=== PATIENT | male | born 1995 | race Caucasian/White ===

== ENCOUNTER 2021-01-31 11:12 | Inpatient (IN) | payer MEDICAID, SELFPAY ==
--- NOTE | ~2021-01-31 | CT_ITS ---
EXAMINATION: CT HEAD WITHOUT CONTRAST CLINICAL INFORMATION: Seizure COMPARISON: None TECHNIQUE: Contiguous axial imaging was performed from the skull base to vertex without intravenous administration of contrast. This CT examination was performed using dose optimization techniques as appropriate, variously including the following: *Automated exposure control *Adjustment of mA and/or kV according to patient size (this includes techniques or standardized protocols for targeted exams where dose is matched to indication/reason for exam; i.e. extremities or head) *Use of iterative reconstruction technique DLP: 769 mGy-cm FINDINGS: There is no evidence of acute intracranial hemorrhage or territorial infarction. No abnormal mass effect or midline shift is seen. Johnson to white matter differentiation is well preserved. No extra-axial fluid collections are identified. The ventricles are normal in size. There is no abnormal attenuation within the brain parenchyma. The osseous structures and soft tissues are normal. The mastoid air cells and visualized portions of the paranasal sinuses are well aerated. CT/CT head/brain wo con IMPRESSION: No acute intracranial process seen.
[2021-01-31 12:20] VITALS: BMI 20.4
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
[2021-01-31] MEDS: Nicotine Polacrilex 2 MG GUM 4 MG BUCCAL ×2 (18:54→21:07)
[2021-01-31 19:52] VITALS: BP 108/63; PULSE 111; TEMP 36.6
[2021-01-31] MEDS: hydrOXYzine HCL 25 MG TABLET PO (20:32)
[2021-01-31] MEDS: Divalproex Sodium 500 MG TABLET.DR PO (20:32)
[2021-01-31] MEDS: risperiDONE 1 MG TABLET PO (20:32)
[2021-01-31] MEDS: diphenhydrAMINE HCL 25 MG TABLET 50 MG PO (20:32)
[2021-02-01 05:35] VITALS: BP 107/61; PULSE 91; TEMP 35.9; O2SAT 99
[2021-02-01] MEDS: Nicotine Polacrilex 2 MG GUM 4 MG BUCCAL ×6 (05:59→20:18)
[2021-02-01 07:00] VITALS: BMI 21.1
[2021-02-01] MEDS: Divalproex Sodium 500 MG TABLET.DR PO ×2 (08:51→20:14)
[2021-02-01] MEDS: risperiDONE 1 MG TABLET PO ×2 (08:51→20:15)
--- NOTE | 2021-02-01 09:55 | P.HPPS_ITS ---
HPI Chief Complaint: unspecified schizophernia Sources of Information: patient interviewed and chart reviewed HPI Subjective Notes: Howell Warning and Conditional Voluntary Narrative: Pt is 25 yo male presenting with psychotic disorder. Pt calm, friendly and cooperative. Pt on CV. On admission reported unwanted intrusive delusional thoughts concerned he may be eating children. He denies any AVH. He says that until last week he and his mother were living in [place] where he was court mandated to live in a intermediate and receive antipsychotic treatment, of which he was compliant. He says there he was given meat to eat that tasted weird and triggered thought that perhaps he was eating children; he is not sure if this his mind playing tricks on on him or a real concern and he says he's confused. Pt said prior to living at this intermediate he was eating without problems or concern. Pt says i'm mostly a vegan... but then lists all the types of meat he does eat which is most options available. Pt did not.like living in the intermediate saying that peers were often bullying; due to constant bullying, he had moments of passive SI and was relieved when his mother told him they were returning to the [facility]. He denies current depression, SI/HI or hx of AVH: he denies trauma hx, TBI or hx of manic type symptoms. Pt denies other paranoid thinking. Pt would like his mother involved in treatment. He has a prior history of suicide attempt when he jumped from second floor at his friend's house Medical Evaluation Reviewed: Yes [facility] Family History: Psych hx:He has a prior history of suicide attempt when he jumped from second floor at his friend's house Social History: lives with mother who is supporitve Substance History: denies Trauma History: denies Diagnostics Vital Signs (24Hr): Vital Signs - 24 hr 01/31/21 19:52 02/01/21 05:35 Temperature 97.9 F 96.7 F L Pulse Rate 111 H 91 Blood Pressure 108/63 107/61 Pulse Oximetry 99 Body Mass Index 20.4 Labs Results: 02/01/21 07:57 Meds/Allergies Meds Home Medications Acetaminophen (Acetaminophen 325 Mg Tablet) 650 mg PO Q6H PRN PRN Reason: Headache/Pain Mild Scale (1-3) Al Hydroxide/Mg Hydroxide (Magnesium Hydrox/Alum Hydrox 30 Ml Oral.Susp) 30 ml PO Q6H PRN PRN Reason: Heartburn/Nausea Last Admin: 02/01/21 15:47 Dose: 30 ml Documented by: Clonazepam (Clonazepam 1 Mg Tablet) 1 mg PO BID PRN PRN Reason: Anxiety Diphenhydramine HCl (Diphenhydramine Hcl 25 Mg Tablet) 50 mg PO BEDTIME [facility] Last Admin: 02/03/21 20:57 Dose: 50 mg Documented by: Divalproex Sodium (Divalproex Sodium 500 Mg Tablet.Dr) 500 mg PO BID [facility] Last Admin: 02/04/21 08:26 Dose: 500 mg Documented by: Hydroxyzine HCl (Hydroxyzine Hcl 25 Mg Tablet) 25 mg PO BEDTIME PRN PRN Reason: Anxiety Last Admin: 01/31/21 20:32 Dose: 25 mg Documented by: Magnesium Hydroxide (Milk Of Magnesia 30 Ml Oral.Susp) 30 ml PO DAILY PRN PRN Reason: Constipation Nicotine Polacrilex (Nicotine Polacrilex 2 Mg Gum) 4 mg BUCCAL Q2H PRN PRN Reason: Nicotine Cravings Last Admin: 02/04/21 13:53 Dose: 4 mg Documented by: Risperidone (Risperidone 1 Mg Tablet) 1 mg PO BID [facility] Last Admin: 02/04/21 08:26 Dose: 1 mg Documented by: Trazodone HCl (Trazodone Hcl 50 Mg Tablet) 50 mg PO BEDTIME PRN PRN Reason: Insomnia Allergies Allergies Allergy/AdvReac Type Severity Reaction Status Date / Time shrimp Allergy Unknown Verified 01/31/21 12:36 Mental Status Exam Mental Status Exam Narrative: Narrative: Patient Appearance: Well Grooomed Patient Orientation: Person, Place and Time Level of Consciousness: Awake and Appropriate Patient Behavior: Appropriate Mood Description: Calm Affect Description: Calm Patient Cognition Impaired: No Ability to Follow Directions: good Speech Pattern: Clear Memory Description: Intact Hallucinations: denies Delusions: worried about eating children Thought Content: negative for Suicidal Ideation and negative for Homicidal Ideation Judgement: Fair Assessment & Plan Assessment & Plan (1) Delusional disorder: Status: Acute Code(s): F22 - Delusional disorders Assessment and Plan: IMPRESSION: Pt is 25 yo male presenting with psychotic disorder. Pt calm, friendly and cooperative. On admission pt expressed unwanted intrusive delusional thoughts concerned he may be eating children. He denies any AVH and does not appear to have negative symptoms. He reports being consistent with medications. On admission his risperdal was increased. Pt currently meets criteria for Delusional Disorder; will leave schizoprhenia as a rule as well as OCD. Pt moved here with his mother from [place] where he was being treated for psychotic symptoms and family wanted him to get stabilized and established here so that he does not decompensate further. Pt asks for team to contact his mother to help know when he's ready to return home. PLAN: pt on CV q15 min checks on admission pt was continued on Risperdal but on increased dose of 1mg BID (up from 1mg qhs) on admission Pt was continued on Depakote 500mg BID will get collateral from mother to assess baseline labs for depakote level Patient educated on: diagnosis and medication risk/benefits Informed Consent: understands Reason for continued inpatient stay Substantial Risk for: med/psych decompensation
[2021-02-01 10:10] LABS: Alanine Aminotransferase 15 U/L (0-40); Alkaline Phosphatase 61 U/L (39-117); Anion Gap 12 (12-20); Aspartate Amino Transferase 16 U/L (5-37); Bilirubin Total 0.3 mg/dL (0.0-1.0); Blood Urea Nitrogen 25 mg/dL (9-16); Calcium 9.3 mg/dL (8.4-10.2); Carbon Dioxide 27 mmol/L (22-29); Chloride 107 mmol/L (96-108); Cholesterol 128 mg/dL; Creatinine Clr Calc Pharmacy 135.5; Estimated Glomerular Filt Rate > 60; Glucose Fasting 82 mg/dL (60-99); HDL Cholesterol 39 mg/dL; LDL Cholesterol Calculated 76 mg/dl; Potassium 4.2 mmol/L (3.3-5.1); Sodium 142 mmol/L (135-145); Triglycerides 69 mg/dL
[2021-02-01] MEDS: Magnesium Hydrox/Alum Hydrox 30 ML ORAL.SUSP PO (15:47)
[2021-02-01 17:15] VITALS: BP 126/82; TEMP 36.5
[2021-02-01] MEDS: diphenhydrAMINE HCL 25 MG TABLET 50 MG PO (20:14)
[2021-02-02 06:10] VITALS: BP 103/51; PULSE 71; RESP 16; TEMP 36.4; O2SAT 100
[2021-02-02] MEDS: Nicotine Polacrilex 2 MG GUM 4 MG BUCCAL ×4 (06:50→18:34)
[2021-02-02] MEDS: Divalproex Sodium 500 MG TABLET.DR PO ×2 (08:20→20:02)
[2021-02-02] MEDS: risperiDONE 1 MG TABLET PO ×2 (08:20→20:02)
--- NOTE | 2021-02-02 09:49 | P.PNPSI_ITS ---
Subjective Subjective Date of Service: 02/02/21 Reason For Visit: unspecified schizophernia Interim History: pt reports that he's good. He says he still has the unwanted thoughts about eating children but much less so and he thinks he's better; continues to deny AVH or SI. Pt says he's sleeping well and tolerating increased dose of risperdal. He asks when commercial real estate underwriter thinks he'll be able to go home and asks for commercial real estate underwriter to speak with his mother. Pt and commercial real estate underwriter agree that patient will wayne nue on current regimen and if he continues to feel back to his normal self and wants to go home, team will discuss with his mother. Medication Compliance: Yes Side effects from medications: No Mental Status Exam Mental Status Exam Narrative: Patient Appearance: Well Grooomed Patient Orientation: Person, Place and Time Level of Consciousness: Awake and Appropriate Patient Behavior: Appropriate Mood Description: Calm Affect Description: Calm Patient Cognition Impaired: No Ability to Follow Directions: good Speech Pattern: Clear Memory Description: Intact Hallucinations: denies Delusions: remain but less so Thought Content: negative for Suicidal Ideation and negative for Homicidal Ideation Judgement: Fair Diagnostics Vital Signs (24Hr): Vital Signs - 24 hr 02/01/21 17:15 02/02/21 06:10 Temperature 97.7 F 97.5 F Pulse Rate 71 Respiratory Rate 16 Blood Pressure 126/82 103/51 L Pulse Oximetry 100 Body Mass Index 21.1 Labs Results: 02/01/21 07:57 Labs: Laboratory Results - last 48 hr 02/01/21 07:57 Sodium 142 Potassium 4.2 Chloride 107 Carbon Dioxide 27 Anion Gap 12 BUN 25 H Creatinine 0.77 Estim Creat Clear Calc 135.5 Estimated GFR > 60 Fasting Glucose 82 Calcium 9.3 Total Bilirubin 0.3 AST 16 ALT 15 Alkaline Phosphatase 61 Total Protein 7.0 Albumin 4.0 Triglycerides 69 Cholesterol 128 LDL Cholesterol, Calc 76 HDL Cholesterol 39 Medications Medications Current Medications Generic Name Dose Route Start Last Admin Trade Name Freq PRN Reason Stop Dose Admin Acetaminophen 650 mg 01/31/21 14:41 Acetaminophen 325 Mg Tablet PO Q6H PRN Headache/Pain Mild Scale (1-3) Al Hydroxide/Mg Hydroxide 30 ml 01/31/21 14:41 02/01/21 15:47 Magnesium Hydrox/Alum Hydrox 30 Ml Oral.Susp PO 30 ml Q6H PRN Administration Heartburn/Nausea Clonazepam 1 mg 01/31/21 14:44 Clonazepam 1 Mg Tablet PO BID PRN Anxiety Diphenhydramine HCl 50 mg 01/31/21 21:00 02/01/21 20:14 Diphenhydramine Hcl 25 Mg Tablet PO 50 mg BEDTIME JAKY Administration Divalproex Sodium 500 mg 01/31/21 21:00 02/02/21 08:20 Divalproex Sodium 500 Mg Tablet.Dr PO 500 mg BID JAKY Administration Hydroxyzine HCl 25 mg 01/31/21 14:41 01/31/21 20:32 Hydroxyzine Hcl 25 Mg Tablet PO 25 mg BEDTIME PRN Administration Anxiety Magnesium Hydroxide 30 ml 01/31/21 14:41 Milk Of Magnesia 30 Ml Oral.Susp PO DAILY PRN Constipation Nicotine Polacrilex 4 mg 01/31/21 18:50 02/02/21 06:50 Nicotine Polacrilex 2 Mg Gum BUCCAL 4 mg Q2H PRN Administration Nicotine Cravings Risperidone 1 mg 01/31/21 21:00 02/02/21 08:20 Risperidone 1 Mg Tablet PO 1 mg BID JAKY Administration Trazodone HCl 50 mg 01/31/21 14:41 Trazodone Hcl 50 Mg Tablet PO BEDTIME PRN Insomnia Allergies Allergies Allergy/AdvReac Type Severity Reaction Status Date / Time shrimp Allergy Unknown Verified 01/31/21 12:36 Assessment & Plan Assessment & Plan (1) Delusional disorder: Status: Acute Code(s): F22 - Delusional disorders Pt is 25 yo male presenting with psychotic disorder. Pt calm, friendly and cooperative. On admission pt expressed unwanted intrusive delusional thoughts concerned he may be eating children. He denies any AVH and does not appear to have negative symptoms. He reports being consistent with medications. On admission his risperdal was increased. Pt currently meets criteria for Delusional Disorder; will leave schizoprhenia as a rule as well as OCD. Pt moved here with his mother from [place] where he was being treated for psychotic symptoms and family wanted him to get stabilized and established here so that he does not decompensate further. Pt asks for team to contact his mother to help know when he's ready to return home. PLAN: pt on CV q15 min checks on admission pt was continued on Risperdal but on increased dose of 1mg BID (up from 1mg qhs) on admission Pt was continued on Depakote 500mg BID will get collateral from mother to assess baseline labs for depakote level Greater than 50% of the session was spent on counseling and/or coordination of care Reason for contiued inpatient stay Substantial Risk for: med/psych decompensation
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
[2021-02-02 16:59] VITALS: BP 105/65; PULSE 95; TEMP 36.6
[2021-02-02] MEDS: diphenhydrAMINE HCL 25 MG TABLET 50 MG PO (20:03)
--- NOTE | 2021-02-02 21:32 | PM.IMHP ---
History of Present Illness Date of Service: 02/02/21 Chief Complaint: admission 89 yo with pmhx of schizophrenia currently admitted to [facility] with diagnosis of unspecified schizophrenia. We are asked to see patient for admission H&P patient denies any past medical history, currently denies any symptoms including no chest pain, no shortness of breath, no abdominal pain nausea or vomiting, no urinary symptoms and no lower extremity edema. Denies any headache or change in vision. Vitals at have remained stable Review of Systems Review of Systems: Yes all other systems are reviewed and are negative [facility] Social History Household Members: Family Household Members Other:: MOM, DAD Housing: Apartment Do you presently have visiting nurse or other home services: No Patient Tobacco Use Status: Former Tobacco user Quit Date: 1 YEAR AGO Tobacco use type: Cigarette Years Smoked: 1 YEAR Smoked in Last 30 Days: No e-Cigarette/Vaping Use: Never Used Patient Interested in Nicotine Replacement: Yes Patient Given Instructions on How to Stop Smoking: Yes Date Education Initiated: 01/31/21 Second Hand Smoke Exposure: No Use of substances other than those prescribed or required for medical reasons: No Currently Displaying Signs/Symptoms of Drug Intoxication Withdrawal: No Any prior treatment program specific to substance use: No Have you been hit, kicked, punched, or otherwise hurt by someone within the past year? If so, by whom?: No Do you feel safe in your current relationship?: No Current Relationship Is there a partner from a previous relationship who is making you feel unsafe now?: No Are you made to feel afraid or neglected: No [facility] Practices: TAOIST Advance Directives: No Advance Directives Information Provided: No Advance Directives on File: No Do you have thoughts of harming others: None Do you have a plan to hurt others: No Plan Recently lost weight without trying: No Eating poorly because of decreased appetite: No Nutrition Risks: No Nutritional Risk Poor oral hygiene: No service: No Sexual orientation: Straight/Heterosexual Meds Allergies Allergy/AdvReac Type Severity Reaction Status Date / Time shrimp Allergy Unknown Verified 01/31/21 12:36 Active Medications: Current Medications Generic Name Dose Route Start Last Admin Trade Name Freq PRN Reason Stop Dose Admin Acetaminophen 650 mg 01/31/21 14:41 Acetaminophen 325 Mg Tablet PO Q6H PRN Headache/Pain Mild Scale (1-3) Al Hydroxide/Mg Hydroxide 30 ml 01/31/21 14:41 02/01/21 15:47 Magnesium Hydrox/Alum Hydrox 30 Ml Oral.Susp PO 30 ml Q6H PRN Administration Heartburn/Nausea Clonazepam 1 mg 01/31/21 14:44 Clonazepam 1 Mg Tablet PO BID PRN Anxiety Diphenhydramine HCl 50 mg 01/31/21 21:00 02/02/21 20:03 Diphenhydramine Hcl 25 Mg Tablet PO 50 mg BEDTIME JAKY Administration Divalproex Sodium 500 mg 01/31/21 21:00 02/02/21 20:02 Divalproex Sodium 500 Mg Tablet.Dr PO 500 mg BID JAKY Administration Hydroxyzine HCl 25 mg 01/31/21 14:41 01/31/21 20:32 Hydroxyzine Hcl 25 Mg Tablet PO 25 mg BEDTIME PRN Administration Anxiety Magnesium Hydroxide 30 ml 01/31/21 14:41 Milk Of Magnesia 30 Ml Oral.Susp PO DAILY PRN Constipation Nicotine Polacrilex 4 mg 01/31/21 18:50 02/02/21 18:34 Nicotine Polacrilex 2 Mg Gum BUCCAL 4 mg Q2H PRN Administration Nicotine Cravings Risperidone 1 mg 01/31/21 21:00 02/02/21 20:02 Risperidone 1 Mg Tablet PO 1 mg BID JAKY Administration Trazodone HCl 50 mg 01/31/21 14:41 Trazodone Hcl 50 Mg Tablet PO BEDTIME PRN Insomnia Home Medications Medication Instructions Recorded Confirmed Last Taken Type clonazepam 2 mg PO DAILY 01/31/21 01/31/21 Unknown History diphenhydramine HCl [Benadryl] 50 mg PO BEDTIME 01/31/21 01/31/21 Unknown History divalproex [Depakote] 500 mg PO BID 01/31/21 01/31/21 Unknown History risperidone [Risperdal] 2 mg PO DAILY 01/31/21 01/31/21 Unknown History topiramate [Topamax] 30 PO 01/31/21 Unknown History Physical Exam Vital Signs and Narrative: Vital Signs: Last Vital Signs Temp 98 F 02/02/21 16:59 Pulse 95 02/02/21 16:59 Resp 16 02/02/21 06:10 BP 105/65 02/02/21 16:59 Pulse Ox 100 02/02/21 06:10 Body Mass Index 21.1 Const: General: cooperative and no acute distress Orientation/consciousness: patient oriented x3 Eyes: General: appearance normal, both eyes and all related structures Resp: Effort & Inspection: normal respiratory effort and able to speak in complete sentences Cardio: Rate: regular rate Rhythm: regular rhythm GI: Palpation (GI): Soft to palpation Auscultation: normal bowel sounds Skin: General skin exam: no rashes or lesions noted Neuro: General: patient oriented x3 Cognition (Neuro): normal cognition Extrem: General: Yes normal to inspection and Yes no pedal edema Results Labs CBC and Chem 7: 02/01/21 07:57 Assessment and Plan (1) Schizophrenia: Status: Acute 25 yo M presented to [facility] for schizophrenia. we are consulted for admission H&P. Pt currently asymptomatic with no pmhx. Current acute unspecified schizophrenia management per [facility] At this time , will sign off , please reach out if any further acute medical attention needed
[2021-02-03 06:00] VITALS: BP 121/58; PULSE 71; RESP 16; TEMP 36.8; O2SAT 100
[2021-02-03] MEDS: risperiDONE 1 MG TABLET PO ×2 (08:28→20:57)
[2021-02-03] MEDS: Divalproex Sodium 500 MG TABLET.DR PO ×2 (08:28→20:57)
[2021-02-03] MEDS: Nicotine Polacrilex 2 MG GUM 4 MG BUCCAL ×2 (08:41→19:46)
[2021-02-03 16:49] VITALS: BP 116/60; PULSE 95; RESP 16; TEMP 36.3; O2SAT 98
--- NOTE | 2021-02-03 20:41 | HO.PSYCHPN ---
Subjective Subjective Date of Service: 02/03/21 Reason For Visit: unspecified schizophernia Interim History: Rafa was keeping mostly to himself. He had no immediate concerns and was in behavioral control Medication Compliance: Yes Side effects from medications: No Review of Systems Acute medical concerns: No Medical Review of Systems: unchanged Mental Status Exam Mental Status Exam Patient Appearance: Well Grooomed Patient Orientation: Person, Place and Time Level of Consciousness: Awake and Appropriate Patient Behavior: Appropriate Mood Description: Calm Affect Description: Calm Patient Cognition Impaired: No Ability to Follow Directions: Excellent Speech Pattern: Clear Memory Description: Intact Hallucinations: None Delusions: Not Present Thought Content: negative for Suicidal Ideation and negative for Homicidal Ideation Judgement: Fair Diagnostics Vital Signs (24Hr): Vital Signs - 24 hr 02/03/21 06:00 02/03/21 16:49 Temperature 98.2 F 97.3 F Pulse Rate 71 95 Respiratory Rate 16 16 Blood Pressure 121/58 L 116/60 Pulse Oximetry 100 98 Body Mass Index 21.1 Labs Results: 02/01/21 07:57 Medications Medications Current Medications Generic Name Dose Route Start Last Admin Trade Name Freq PRN Reason Stop Dose Admin Acetaminophen 650 mg 01/31/21 14:41 Acetaminophen 325 Mg Tablet PO Q6H PRN Headache/Pain Mild Scale (1-3) Al Hydroxide/Mg Hydroxide 30 ml 01/31/21 14:41 02/01/21 15:47 Magnesium Hydrox/Alum Hydrox 30 Ml Oral.Susp PO 30 ml Q6H PRN Administration Heartburn/Nausea Clonazepam 1 mg 01/31/21 14:44 Clonazepam 1 Mg Tablet PO BID PRN Anxiety Diphenhydramine HCl 50 mg 01/31/21 21:00 02/02/21 20:03 Diphenhydramine Hcl 25 Mg Tablet PO 50 mg BEDTIME JAKY Administration Divalproex Sodium 500 mg 01/31/21 21:00 02/03/21 08:28 Divalproex Sodium 500 Mg Tablet.Dr PO 500 mg BID JAKY Administration Hydroxyzine HCl 25 mg 01/31/21 14:41 01/31/21 20:32 Hydroxyzine Hcl 25 Mg Tablet PO 25 mg BEDTIME PRN Administration Anxiety Magnesium Hydroxide 30 ml 01/31/21 14:41 Milk Of Magnesia 30 Ml Oral.Susp PO DAILY PRN Constipation Nicotine Polacrilex 4 mg 01/31/21 18:50 02/03/21 19:46 Nicotine Polacrilex 2 Mg Gum BUCCAL 4 mg Q2H PRN Administration Nicotine Cravings Risperidone 1 mg 01/31/21 21:00 02/03/21 08:28 Risperidone 1 Mg Tablet PO 1 mg BID JAKY Administration Trazodone HCl 50 mg 01/31/21 14:41 Trazodone Hcl 50 Mg Tablet PO BEDTIME PRN Insomnia Allergies Allergies Allergy/AdvReac Type Severity Reaction Status Date / Time shrimp Allergy Unknown Verified 01/31/21 12:36 Assessment & Plan Assessment & Plan (1) Schizophrenia: Status: Acute Code(s): F20.9 - Schizophrenia, unspecified Assessment and Plan: 25 yo M [facility]. we are consulted for admission H&P. Pt currently asymptomatic with no pmhx. Current acute unspecified schizophrenia management per [facility] At this time , will sign off , please reach out if any further acute medical attention needed Compliant with treatment No change to plan Greater than 50% of the session was spent on counseling and/or coordination of care Patient educated on: diagnosis and medication risk/benefits Informed Consent: further education needed Reason for contiued inpatient stay Substantial Risk for: inability to function
[2021-02-03] MEDS: diphenhydrAMINE HCL 25 MG TABLET 50 MG PO (20:57)
[2021-02-04 06:00] VITALS: BP 107/58; PULSE 77; RESP 16; TEMP 36.7; O2SAT 97
[2021-02-04] MEDS: risperiDONE 1 MG TABLET PO ×2 (08:26→20:05)
[2021-02-04] MEDS: Divalproex Sodium 500 MG TABLET.DR PO ×2 (08:26→20:05)
[2021-02-04] MEDS: Nicotine Polacrilex 2 MG GUM 4 MG BUCCAL ×4 (08:29→17:10)
[2021-02-04 17:10] VITALS: BP 118/72; PULSE 102; RESP 16; TEMP 35.9; O2SAT 97
--- NOTE | 2021-02-04 18:39 | HO.PSYCHPN ---
Subjective Subjective Date of Service: 02/04/21 Reason For Visit: unspecified schizophernia Interim History: Rafa was pre-occupied with the idea that the world is ending soon. He was however stating that he has felt some improvement. He was in behavioral control. Medication Compliance: Yes Side effects from medications: No Review of Systems Acute medical concerns: No Medical Review of Systems: unchanged Mental Status Exam Mental Status Exam Patient Appearance: Well Grooomed Patient Orientation: Person, Place and Time Level of Consciousness: Awake and Appropriate Patient Behavior: Appropriate Mood Description: Calm Affect Description: Calm Patient Cognition Impaired: No Ability to Follow Directions: Excellent Speech Pattern: Clear Memory Description: Intact Hallucinations: None Delusions: Not Present Thought Content: negative for Suicidal Ideation and negative for Homicidal Ideation Judgement: Fair Diagnostics Vital Signs (24Hr): Vital Signs - 24 hr 02/04/21 06:00 02/04/21 17:10 Temperature 98.1 F 96.7 F L Pulse Rate 77 102 H Respiratory Rate 16 16 Blood Pressure 107/58 L 118/72 Pulse Oximetry 97 97 Body Mass Index 21.1 Labs Results: 02/01/21 07:57 Medications Medications Current Medications Generic Name Dose Route Start Last Admin Trade Name Freq PRN Reason Stop Dose Admin Acetaminophen 650 mg 01/31/21 14:41 Acetaminophen 325 Mg Tablet PO Q6H PRN Headache/Pain Mild Scale (1-3) Al Hydroxide/Mg Hydroxide 30 ml 01/31/21 14:41 02/01/21 15:47 Magnesium Hydrox/Alum Hydrox 30 Ml Oral.Susp PO 30 ml Q6H PRN Administration Heartburn/Nausea Clonazepam 1 mg 01/31/21 14:44 Clonazepam 1 Mg Tablet PO BID PRN Anxiety Diphenhydramine HCl 50 mg 01/31/21 21:00 02/03/21 20:57 Diphenhydramine Hcl 25 Mg Tablet PO 50 mg BEDTIME JAKY Administration Divalproex Sodium 500 mg 01/31/21 21:00 02/04/21 08:26 Divalproex Sodium 500 Mg Tablet.Dr PO 500 mg BID JAKY Administration Hydroxyzine HCl 25 mg 01/31/21 14:41 01/31/21 20:32 Hydroxyzine Hcl 25 Mg Tablet PO 25 mg BEDTIME PRN Administration Anxiety Magnesium Hydroxide 30 ml 01/31/21 14:41 Milk Of Magnesia 30 Ml Oral.Susp PO DAILY PRN Constipation Nicotine Polacrilex 4 mg 01/31/21 18:50 02/04/21 17:10 Nicotine Polacrilex 2 Mg Gum BUCCAL 4 mg Q2H PRN Administration Nicotine Cravings Risperidone 1 mg 01/31/21 21:00 02/04/21 08:26 Risperidone 1 Mg Tablet PO 1 mg BID JAKY Administration Trazodone HCl 50 mg 01/31/21 14:41 Trazodone Hcl 50 Mg Tablet PO BEDTIME PRN Insomnia Allergies Allergies Allergy/AdvReac Type Severity Reaction Status Date / Time shrimp Allergy Unknown Verified 01/31/21 12:36 Assessment & Plan Assessment & Plan (1) Delusional disorder: Status: Acute Code(s): F22 - Delusional disorders Assessment and Plan: IMPRESSION: Pt is 25 yo male presenting with psychotic disorder. Pt calm, friendly and cooperative. On admission pt expressed unwanted intrusive delusional thoughts concerned he may be eating children. He denies any AVH and does not appear to have negative symptoms. He reports being consistent with medications. On admission his risperdal was increased. Pt currently meets criteria for Delusional Disorder; will leave schizoprhenia as a rule as well as OCD. Pt moved here with his mother from [place] where he was being treated for psychotic symptoms and family wanted him to get stabilized and established here so that he does not decompensate further. Pt asks for team to contact his mother to help know when he's ready to return home. PLAN: pt on CV q15 min checks on admission pt was continued on Risperdal but on increased dose of 1mg BID (up from 1mg qhs) on admission Pt was continued on Depakote 500mg BID will get collateral from mother to assess baseline labs for depakote level No change to the above plan Greater than 50% of the session was spent on counseling and/or coordination of care Patient educated on: diagnosis and medication risk/benefits Informed Consent: further education needed Reason for contiued inpatient stay Substantial Risk for: inability to function
[2021-02-04] MEDS: diphenhydrAMINE HCL 25 MG TABLET 50 MG PO (20:05)
[2021-02-05 05:50] VITALS: BP 122/73; PULSE 97; RESP 16; TEMP 36.3; O2SAT 100
[2021-02-05 08:34] LABS: Ammonia 34 umol/L (13-55)
[2021-02-05 08:56] LABS: Valproate 42.1 mcg/mL (50.0-100.0)
[2021-02-05 09:22] LABS: Alanine Aminotransferase 12 U/L (0-40); Albumin Level 4.2 g/dL (3.5-5.0); Alkaline Phosphatase 64 U/L (39-117); Aspartate Amino Transferase 13 U/L (5-37); Bilirubin Direct < 0.2 mg/dL (0.0-0.5); Bilirubin Total 0.5 mg/dL (0.0-1.0); Total Protein 7.2 g/dL (6.5-8.0)
[2021-02-05] MEDS: LORazepam 2 MG/ML VIAL IM (09:30)
[2021-02-05 09:34] LABS: Glucose, Whole Blood 104 mg/dL (60-115)
--- NOTE | 2021-02-05 09:58 | PM.PSYDC ---
DS: Providers Provider Date of Service: 02/05/21 Date of admission: 01/31/21 11:12 Date of discharge: 02/05/21 Primary care physician: Unknown Physician Attending physician on admission: Fabrizio Watson Consults: 02/01/21 16:13 Consult to Hospitalist Routine Consulting Provider: Hospitalist Reason For Exam: medical exam for admission Attending physician on discharge: Fabrizio Watson DS: Diagnosis Discharge Diagnosis (1) Schizoaffective disorder, bipolar type: Status: Acute Problem details: psychotic symptoms outside of depressive and manic episodes DS: Medications Discharge Medications Home Medications: pt had seizure on unit on 02/05/21 and transferred to [facility] for assessment/treatment. All medications stopped on transfer and deferred to new treatment team. Discharge Plan Discharge Patient Disposition: [facility] Discharge Diagnosis: schizoaffective disorder, bipolar type Referrals: Physician,Unknown [Primary Care Provider] - 1 Week Discharge Medications: Discontinued diphenhydramine HCl [Benadryl] 50 mg Capsule 50 mg PO BEDTIME RF: 0 divalproex [Depakote] 500 mg Tablet,Delayed Release (Dr/Ec) 500 mg PO BID RF: 0 risperidone [Risperdal] 2 mg Tablet 2 mg PO DAILY RF: 0 clonazepam 2 mg Tablet 2 mg PO DAILY RF: 0 topiramate [Topamax] 15 mg Capsule, Sprinkle 30 PO RF: 0 Discharge Orders: Discharge Order (Routine); Ordered 02/05/21 Ordered By: Fabrizio Watson Diet: advance to usual diet Activity on Discharge: As tolerated Stand Alone Forms: Patient Portal Discharge page Care Plan Goals: deferred; transferred to medical floor for tx Health Concerns: deferred; transferred to medical floor for tx Plan of Treatment: deferred; transferred to medical floor for tx Assessment: deferred; transferred to medical floor for tx Discharge Date/Time: 02/05/21 09:55 Mental Status Exam Mental Status Exam Narrative: Pt having seizure and unable to access Data Data Completed and Pending Completed studies during hospitalization [Text1]: 02/01/21 02/05/21 02/05/21 07:57 07:52 07:53 Sodium 142 Potassium 4.2 Chloride 107 Carbon Dioxide 27 Anion Gap 12 BUN 25 H Creatinine 0.77 Estim Creat Clear Calc 135.5 Estimated GFR > 60 POC Glucose Fasting Glucose 82 Calcium 9.3 Magnesium Pending Total Bilirubin 0.3 0.5 Direct Bilirubin < 0.2 AST 16 13 ALT 15 12 Alkaline Phosphatase 61 64 Ammonia 34 Total Protein 7.0 7.2 Albumin 4.0 4.2 Triglycerides 69 Cholesterol 128 LDL Cholesterol, Calc 76 HDL Cholesterol 39 Valproic Acid 42.1 L 02/05/21 09:26 Sodium Potassium Chloride Carbon Dioxide Anion Gap BUN Creatinine Estim Creat Clear Calc Estimated GFR POC Glucose 104 Fasting Glucose Calcium Magnesium Total Bilirubin Direct Bilirubin AST ALT Alkaline Phosphatase Ammonia Total Protein Albumin Triglycerides Cholesterol LDL Cholesterol, Calc HDL Cholesterol Valproic Acid DS: Summary Hospital Course Hospital Course: Pt 25 yo male presenting with psychotic disorder. born and partially raised in [place] but has been living in [place] with his mother for some time. [place] returned to [place] about 1 week before admission. Pt on CV; he was calm and cooperative, denied depression or SI or any AVH. He complained of intrusive thoughts that he's been eating children. Pt was continued on Risperdal but at increased dose of 1mg BID (up from 1mg daily); also continued on depakote. Pt reported that thoughts were less intense and that he felt he might be soon ready for discharge. Pt remained stable on unit with appropriate behaviors and interactions with staff and peers. He continued to deny any SI. One friday, however, pt had seizure on unit on 02/05/21. Code called and he was transferred to [facility] for assessment/treatment. All medications stopped on transfer and deferred to new treatment team. Patients mother contacted (pt gave ENZO to talk w/ mother with whom he lives and is supportive). -mom says no hx of seizures -mom says pt not on Topimax (it was listed in hospitalists note) -mom says little to no hx of AH but endorses hx of manic episodes, first about 7 years ago when for 4 days he was w/out sleep, seeing things that were'nt there, with high energy hyperverbal/pressured speech, saying bizarre things, risk behaviors-went to ruff and jumped off..which resulted in admission -numerous inpatient admissions -hx of depressive episodes and several suicide attempts -hx of paranoid delusional thinking outside of manic and depressive episodes. 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
--- NOTE | 2021-02-05 09:59 | P.EN_ITS ---
Event Note Date of Service: 02/05/21 Event Note: pt had witnessed seizure; code called and patient transferred to [facility] Pt's mother called by nursing staff. She reports that patient is not on Topimax (which was not started on Admission)
--- NOTE | 2021-02-05 09:59 | PM.EVENT ---
Event Note Date of Service: 02/05/21 Event Note: pt had witnessed seizure; code called and patient transferred to [facility] Pt's mother called by nursing staff. She reports that patient is not on Topimax (which was not started on Admission)
--- NOTE | 2021-02-05 10:07 | PC.NURSE ---
T/W was notified at 0915 that pt was down the smith having seizure , rapid response had been called and responding staff MD, T[employer] OPERATOR and security present. Pt was laying on his side not responding with rapid eye movement. VSS, POC 104, no tremors in extremities or incontinence noted. EKG showed normal rhythm. present ordered pt to [facility] for further assessment CT scan and xrays. Pt transported to [facility] at approx. 0930
--- NOTE | 2021-02-05 10:15 | PC.NURSE ---
pt give Ativan 2mg im stat to right gluteus, with overide used due to rapid response, pt appeared to be having a seizure.
== END 2021-02-05 09:55 | disposition short-term general hospital (02) | DRG 750 ==
PROVIDERS: Internal Medicine; Admitting Provider Psychiatry & Neurology Psychiatry; Visit Provider Psychiatry & Neurology Psychiatry
DX: F25.0 Schizoaffective disorder, bipolar type (principal); R56.9 Unspecified convulsions; R11.2 Nausea with vomiting, unspecified; Z91.5 Personal history of self-harm; Z87.891 Personal history of nicotine dependence; Z79.899 Other long term (current) drug therapy
CPT/HCPCS: 36415; 70450; 80053; 80061; 80076; 80164; 82140; 82947; 83735; J2060; Q0163

== ENCOUNTER 2021-02-05 10:19 | Observation (INO) | payer MEDICAID, SELFPAY ==
--- NOTE | 2021-02-05 10:23 | PM.IMHP ---
History of Present Illness Date of Service: 02/05/21 <Jessica Wells NP - Last Filed: 02/05/21 16:06> Chief Complaint: Transfer from , possible seizure <Jessica Wells NP - Last Filed: 02/05/21 16:06> 89 year man transferred from this morning response was called. Apparently the patient suddenly became weak and started staring he was lowered to the ground. Patient had remained hemodynamically stable with normal blood pressure, pulse and oxygen saturation. He was staring in to the ER with no purposeful movements or conversation. It was unknown whether patient had a seizure disorder however it. The patient may have had a seizure and was admitted triggered 2 mg of IM lorazepam. Patient was then transferred to a stretcher and brought down for a CT scan. While down getting CT scan patient raised his head and opened his eyes and seemed awake. He remained awake through the CAT scan and then transferred to the intermediate care unit. His labs are all within normal limits, vital signs are stable. He has had no other seizure-like activity although at this time he is expressing suicidal ideation thoughts. <Jessica Wells NP - Last Filed: 02/05/21 16:06> Review of Systems Review of Systems: Yes Unobtainable due to mental status ( unresponsive during seizure activity) and Other <Jessica Wells NP - Last Filed: 02/05/21 16:06> [facility] Medical History: Medical History (Updated 02/05/21 @ 11:10 by Fabrizio Watson) Schizoaffective disorder, bipolar type <Jessica Wells NP - Last Filed: 02/05/21 16:06> Pertinent family history: unknown as patient was unresponsive <Jessica Wells NP - Last Filed: 02/05/21 16:06> Social History: Social History Household Members: Family Household Members Other:: lives with parent Housing: Apartment Do you presently have visiting nurse or other home services: No Patient Tobacco Use Status: Former Tobacco user Quit Date: 01/2020 Tobacco use type: Cigarette Years Smoked: 1 YEAR Smoked in Last 30 Days: No e-Cigarette/Vaping Use: Never Used Patient Interested in Nicotine Replacement: No Patient Given Instructions on How to Stop Smoking: No Second Hand Smoke Exposure: No Use of substances other than those prescribed or required for medical reasons: Yes Substance Use Type: Marijuana Substance Use Frequency: Occasionally Last Used Substance: Unknown Currently Displaying Signs/Symptoms of Drug Intoxication Withdrawal: No Any prior treatment program specific to substance use: No Have you been hit, kicked, punched, or otherwise hurt by someone within the past year? If so, by whom?: No Do you feel safe in your current relationship?: No Current Relationship Is there a partner from a previous relationship who is making you feel unsafe now?: No Are you made to feel afraid or neglected: No Advance Directives: No Advance Directives Information Provided: No Do you have thoughts of harming others: None Do you have a plan to hurt others: No Plan Recently lost weight without trying: No Eating poorly because of decreased appetite: No Nutrition Risks: No Nutritional Risk Poor oral hygiene: No service: No Sexual orientation: Straight/Heterosexual <Jessica Wells NP - Last Filed: 02/05/21 16:06> Meds Allergies/Adverse reactions: Allergies Allergy/AdvReac Type Severity Reaction Status Date / Time shrimp Allergy Unknown Verified 01/31/21 12:36 <Jessica Wells NP - Last Filed: 02/05/21 16:06> Active Medications: Current Medications Generic Name Dose Route Start Last Admin Trade Name Freq PRN Reason Stop Dose Admin Acetaminophen 650 mg 02/05/21 10:20 Acetaminophen 325 Mg Tablet PO Q6H PRN Pain, Mild (Pain Scale 1-3) Ondansetron HCl 4 mg 02/05/21 10:20 Ondansetron Hcl 4 Mg/2 Ml Vial IVPUSH Q8H PRN Nausea and Vomiting Sodium Chloride 3 ml 02/05/21 16:00 0.9 % Sodium Chloride Flush 3 Ml Syringe [facility] <Jessica Wells NP - Last Filed: 02/05/21 16:06> Home medications: Home Medications Medication Instructions Recorded Confirmed Last Taken Type divalproex 500 mg PO BID 02/05/21 02/05/21 Unknown History risperidone 2 mg PO DAILY 02/05/21 02/05/21 Unknown History <Jessica Wells NP - Last Filed: 02/05/21 16:06> Physical Exam Vital Signs and Narrative: Appearing in no acute distress head is normocephalic atraumatic eyes pupils are PERRLA sclera is anicteric mouth throat mucous membranes are intact and moist neck is supple no lymphadenopathy, no JVD noted lung sounds are clear to auscultation heart regular rate rhythm, clear S1, S2 positive bowel sounds, abdomen is soft, nontender neuro patient is alert x3, no focal deficits <Jessica Wells NP - Last Filed: 02/05/21 16:06> Results Labs CBC and Chem 7: : 02/05/21 11:49 02/05/21 11:50 <Jesisca Wells NP - Last Filed: 02/05/21 16:06> Assessment and Plan (1) Schizoaffective disorder, bipolar type: Status: Acute <Jessica Wells NP - Last Filed: 02/05/21 16:06> 25-year-old man transferred down from due to seizure type activity. Apparently patient was has no history of seizure in the past but was on Topamax at home for unknown reason. Seizure versus pseudo-seizure No further activity since arrival to the intermediate care unit -EEG -neuro consultation -seizure precautions next Schizophrenia/depression. Apparently reporting SI -psych consultation for return to the psychiatric unit -patient will need sitter -on Depakote and risperidone DVT prophylaxis with early ambulation Attending: Dr. Shaver Full code <Jessica Wlels NP - Last Filed: 02/05/21 16:06> (2) Delusional disorder: Status: Acute <Jessica Wells NP - Last Filed: 02/05/21 16:06> I saw and examined the patient during rapid response for possible seizure vs Pseudo sieuzre. I discuss finding, plan and mangement with KNOWLEDGE ANALYST and I agree with KNOWLEDGE ANALYST's note above. Likely nonepileptic seizure, EEG, Neuro consult. Benzo PRN, hold anticonvulsants at this time. Head cT reviewed and unremarkable. <Kyle Shaver MD - Last Filed: 02/05/21 19:41>
[2021-02-05 11:00] VITALS: BP 124/73; PULSE 82; RESP 20; TEMP 36.3; O2SAT 100
[2021-02-05 11:15] VITALS: BP 110/57; PULSE 78; RESP 18; TEMP 36.8; O2SAT 100
[2021-02-05 11:37] VITALS: BMI 22.3
[2021-02-05 12:05] LABS: Hematocrit 36.4 % (42-52); Hemoglobin 11.9 g/dl (14.0-18.0); Mean Corpuscular HGB Conc 32.7 g/dl (31.0-36.0); Mean Corpuscular Hemoglobin 30.8 pg (27.0-33.0); Mean Corpuscular Volume 94.3 fL (80-98); Mean Platelet Volume 9.1 fL (9.4-12.4); Platelet Count 170 X10*3/uL (160-400); Red Blood Count 3.86 X10*6/uL (4.60-5.80); Red Cell Distribution Width 13.2 % (11.0-16.0); White Blood Count 7.4 X10*3/uL (4.8-10.8)
[2021-02-05 12:22] LABS: Lactic Acid 1.1 mmol/L (0.5-2.0)
[2021-02-05 13:19] LABS: Anion Gap 10 (12-20); Blood Urea Nitrogen 16 mg/dL (9-16); Calcium 9.3 mg/dL (8.4-10.2); Carbon Dioxide 27 mmol/L (22-29); Chloride 106 mmol/L (96-108); Estimated Glomerular Filt Rate > 60; Glucose Random 91 mg/dL (60-115); Potassium 4.1 mmol/L (3.3-5.1); Sodium 139 mmol/L (135-145)
[2021-02-05 15:17] VITALS: BP 117/64; PULSE 93; TEMP 36.5; O2SAT 99
[2021-02-05] MEDS: 0.9 % Sodium Chloride Flush 3 ML SYRINGE IVFLUSH (15:36)
[2021-02-05] MEDS: Acetaminophen 325 MG TABLET 650 MG PO (15:43)
[2021-02-05 19:46] VITALS: BP 107/74; PULSE 107; RESP 18; TEMP 36.4; O2SAT 96
[2021-02-05] MEDS: ondansetron HCL 4 MG/2 ML VIAL IVPUSH (19:49)
[2021-02-05 23:44] VITALS: BP 104/55; PULSE 98; RESP 14; TEMP 36.3; O2SAT 99
[2021-02-06] MEDS: 0.9 % Sodium Chloride Flush 3 ML SYRINGE IVFLUSH ×2 (00:19→08:26)
[2021-02-06 03:50] VITALS: BP 107/51; PULSE 77; RESP 14; TEMP 36.6; O2SAT 97
[2021-02-06 06:44] LABS: MANUAL DIFF FLAG NO
[2021-02-06 06:49] LABS: Basophils Percent Auto 0.3 % (0-2); Eosinophils Absolute Auto 0.1 X10*3/uL (0.0-0.4); Hematocrit 36.8 % (42-52); Hemoglobin 12.2 g/dl (14.0-18.0); Imm Gran Abs Auto 0.02 X10*3/uL (0.00-0.03); Imm Gran Pct Auto 0.3 % (0.0-0.4); Lymphocytes Absolute Auto 2.2 X10*3/uL (1.2-4.9); Lymphocytes Percent Auto 36.1 % (20-40); Mean Corpuscular HGB Conc 33.2 g/dl (31.0-36.0); Mean Corpuscular Volume 93.6 fL (80-98); Mean Platelet Volume 9.5 fL (9.4-12.4); Monocytes Absolute Auto 0.7 X10*3/uL (0.1-1.2); Monocytes Percent Auto 11.4 % (2-11); Neutrophils Absolute Auto 3.1 X10*3/uL (2.0-8.3); Neutrophils Percent Auto 50.9 % (45-73); Platelet Count 180 X10*3/uL (160-400); Red Blood Count 3.93 X10*6/uL (4.60-5.80); Red Cell Distribution Width 13.2 % (11.0-16.0); White Blood Count 6.1 X10*3/uL (4.8-10.8)
[2021-02-06 07:08] VITALS: BP 124/67; PULSE 87; RESP 17; TEMP 36.6; O2SAT 99
[2021-02-06 07:14] LABS: Anion Gap 10 (12-20); Blood Urea Nitrogen 19 mg/dL (9-16); Calcium 9.4 mg/dL (8.4-10.2); Carbon Dioxide 25 mmol/L (22-29); Chloride 110 mmol/L (96-108); Creatinine Clr Calc Pharmacy 151.8; Estimated Glomerular Filt Rate > 60; Glucose Random 93 mg/dL (60-115); Potassium 4.1 mmol/L (3.3-5.1); Sodium 141 mmol/L (135-145)
--- NOTE | 2021-02-06 08:40 | PHA.MEDREC ---
Pharmacy Consult ? Medication Reconciliation Pharmacy has completed the medication reconciliation.
--- NOTE | 2021-02-06 08:48 | PM.NEUROCN ---
History of Present Illness Data of Consult Service Date: 02/06/21 Primary Care Provider: Unknown Physician 25 years old man who probably suffered from significant psychiatric illness involving significant psychosis was asked to see for possible seizure disorder. Apparently he was noted to be either staring or became lethargic and slumped to the ground but did not fall. He said that he had convulsion and he remember what happened. He denied any previous history of seizure disorder. His psychiatric history was listed in medical records. Review of Systems Review of Systems: Limited because of significant psychiatric disease. Apparently no recent cold or flu-like illness or trauma. [facility] Past Medical History Medical History (Updated 02/06/21 @ 08:52 by Maria Eugenia Smith MD) Schizoaffective disorder, bipolar type Social History Social History Household Members: Family Household Members Other:: lives with parent Housing: Apartment Do you presently have visiting nurse or other home services: No Patient Tobacco Use Status: Former Tobacco user Quit Date: 01/2020 Tobacco use type: Cigarette Years Smoked: 1 YEAR Smoked in Last 30 Days: No e-Cigarette/Vaping Use: Never Used Patient Interested in Nicotine Replacement: No Patient Given Instructions on How to Stop Smoking: No Second Hand Smoke Exposure: No Use of substances other than those prescribed or required for medical reasons: Yes Substance Use Type: Marijuana Substance Use Frequency: Occasionally Last Used Substance: Unknown Currently Displaying Signs/Symptoms of Drug Intoxication Withdrawal: No Any prior treatment program specific to substance use: No Have you been hit, kicked, punched, or otherwise hurt by someone within the past year? If so, by whom?: No Do you feel safe in your current relationship?: No Current Relationship Is there a partner from a previous relationship who is making you feel unsafe now?: No Are you made to feel afraid or neglected: No Advance Directives: No Advance Directives Information Provided: No Do you have thoughts of harming others: None Do you have a plan to hurt others: No Plan Recently lost weight without trying: No Eating poorly because of decreased appetite: No Nutrition Risks: No Nutritional Risk Poor oral hygiene: No service: No Sexual orientation: Straight/Heterosexual Meds Allergies Allergy/AdvReac Type Severity Reaction Status Date / Time shrimp Allergy Unknown Verified 01/31/21 12:36 Active Medications: Current Medications Generic Name Dose Route Start Last Admin Trade Name Lesley PRN Reason Stop Dose Admin Acetaminophen 650 mg 02/05/21 10:20 02/05/21 15:43 Acetaminophen 325 Mg Tablet PO 650 mg Q6H PRN Administration Pain, Mild (Pain Scale 1-3) Ondansetron HCl 4 mg 02/05/21 10:20 02/05/21 19:49 Ondansetron Hcl 4 Mg/2 Ml Vial IVPUSH 4 mg Q8H PRN Administration Nausea and Vomiting Pharmacy Consult 1 each 02/05/21 10:22 Consult Rx Perform Med Rec MISCELLANE ONCE PRN Consult order Sodium Chloride 3 ml 02/05/21 16:00 02/06/21 08:26 0.9 % Sodium Chloride Flush 3 Ml Syringe IVFLUSH 3 ml QSHIFT JAKY Administration Home Medications Medication Instructions Recorded Confirmed Last Taken Type divalproex 500 mg PO BID 02/05/21 02/05/21 Unknown History risperidone 2 mg PO DAILY 02/05/21 02/05/21 Unknown History Physical Exam Vital Signs: Vital Signs: Last Vital Signs Temp 97.9 F 02/06/21 07:08 Pulse 87 02/06/21 07:08 Resp 17 02/06/21 07:08 BP 124/67 02/06/21 07:08 Pulse Ox 99 02/06/21 07:08 Body Mass Index 22.3 Alert and awake looking around made eye contact with quite wake affect. He knew where he was and what year this was and what he had for dinner last night. He was following simple commands. Spontaneity and fluency of speech were normal. Comprehension was normal. Pupils were equal and reactive to light and extraocular muscles were intact. Visual felder are full to threat. Face was symmetrical. There was no obvious focal weakness. Deep tendon reflexes were 1+ with flexor plantars. Results Labs CBC & Chem 7: 02/06/21 06:10 02/06/21 06:10 Labs: Short CBC 02/05/21 02/06/21 Range/Units 11:49 06:10 WBC 7.4 6.1 (4.8-10.8) X10*3/uL Hgb 11.9 L 12.2 L (14.0-18.0) g/dl Hct 36.4 L 36.8 L (42-52) % Plt Count 170 180 (160-400) X10*3/uL BMP 02/05/21 02/06/21 11:50 06:10 Sodium 139 141 Potassium 4.1 4.1 Chloride 106 110 H Carbon Dioxide 27 25 BUN 16 19 H Creatinine 0.78 0.75 Calcium 9.3 9[address] did not reveal any significant abnormality other than dilated cisterna magna. Assessment and Plan (1) Spell of abnormal behavior: Status: Acute 25 years old man who seems to have significant underlying psychiatric disease including psychosis had an episode suggestive of seizure. My index of suspicion for seizure disorder was low. I recommend obtaining a routine EEG and if that is negative to continue with psychiatric care. Procedures Date of Service Date of Service: 02/06/21
--- NOTE | 2021-02-06 08:57 | MHC.CM.PN ---
Met with Patient at bedside with Medical present. Goal for dc is for Patient to return to [facility]. CM has initiated and will follow for dc planning. FANTA addressed with Patient and the original has been given to him and a copy has been placed on the chart. Patient is unsure if he has a PCP and he lives with his Mother. Patient is functionally independent.
[2021-02-06 11:28] VITALS: BP 121/67; PULSE 85; RESP 16; TEMP 36.5; O2SAT 95
--- NOTE | 2021-02-06 13:30 | PM.DS ---
DS: Providers Provider Date of Service: 02/06/21 <Jessica Wells NP - Last Filed: 03/07/21 17:09> Date of admission: 02/05/21 10:19 <Jessica Wells NP - Last Filed: 03/07/21 17:09> Date of discharge: 02/06/21 <Jessica Wells NP - Last Filed: 03/07/21 17:09> Primary care physician: Unknown Physician <Jessica Wells NP - Last Filed: 03/07/21 17:09> Admitting clinician: Jessica Wells <Jessica Wells NP - Last Filed: 03/07/21 17:09> Attending physician on admission: Kyle Shaver <Jessica Wells NP - Last Filed: 03/07/21 17:09> Consults: 02/05/21 10:20 Consult to Neurology Routine Consulting Provider: [facility] Reason for consultation: ? sezizure vs pseudo Has provider been notified: No 02/05/21 11:58 Consult to Hospitalist Routine Consulting Provider: Hospitalist Reason For Exam: medical exam for admission <Jessica Wells NP - Last Filed: 03/07/21 17:09> Attending physician on discharge: Kyle Shaver <Jessica Wells NP - Last Filed: 03/07/21 17:09> Discharging clinician: Jessica Wells <Jessica Wells NP - Last Filed: 03/07/21 17:09> DS: Diagnosis Discharge Diagnosis (1) Spell of abnormal behavior: DS: Medications Discharge Medications Home Medications: Home Medications Medication Instructions Recorded Confirmed divalproex 500 mg PO BID 02/05/21 02/05/21 risperidone 2 mg PO DAILY 02/05/21 02/05/21 <Jessica Wells NP - Last Filed: 03/07/21 17:09> DS: Summary Hospital Course Hospital Course: 25 year old man transferred from this morning response was called. Apparently the patient suddenly became weak and started staring he was lowered to the ground. Patient had remained hemodynamically stable with normal blood pressure, pulse and oxygen saturation. He was staring in to the ER with no purposeful movements or conversation. It was unknown whether patient had a seizure disorder however it. The patient may have had a seizure and was admitted triggered 2 mg of IM lorazepam. Patient was then transferred to a stretcher and brought down for a CT scan. While down getting CT scan patient raised his head and opened his eyes and seemed awake. He remained awake through the CAT scan and then transferred to the intermediate care unit. His labs are all within normal limits, vital signs are stable. He has had no other seizure-like activity although at this time he is expressing suicidal ideation thoughts. Unresponsiveness. Possible seizure. Patient was transferred from after being found unresponsive. He had initially no meaningful communication and he was just staring out. He was not noted to have any episode of loss of bowel or bladder function, foaming at the mouth, tonic-clonic movements. He did have some flickering of his eyelids at 1 point. After being administered 2 mg of IV Ativan and transfer for a CAT scan the patient woke up and knew what his name was, where he was and what had happened. Therefore seems less likely that this was a seizure. May be a pseudo-seizure versus stress from his mental illness. He was seen and evaluated by Neurology and EEG is pending. He is safe for discharge back up to for treatment of his mental illness. Suicide ideation. Had a sitter during hospitalization. Denied any feelings self-harm today. <Jessica Wells NP - Last Filed: 03/07/21 17:09> Time Spent with Patient Time attestation: Total time spent providing and/or coordinating discharge services: <Jessica Wells NP - Last Filed: 03/07/21 17:09> Discharge coordination time: Greater than 30 minutes <Jessica Wells NP - Last Filed: 03/07/21 17:09> Quality: Stroke Does the patient have a stroke diagnosis?: No <Jessica Wells NP - Last Filed: 03/07/21 17:09> Physical Exam Vital Signs: Vital Signs: Last Vital Signs Temp 97.7 F 02/06/21 11:28 Pulse 85 02/06/21 11:28 Resp 16 02/06/21 11:28 BP 121/67 02/06/21 11:28 Pulse Ox 95 02/06/21 11:28 Body Mass Index 22.3 <Jessica Wells NP - Last Filed: 03/07/21 17:09> Appearing in no acute distress head is normocephalic atraumatic eyes pupils are PERRLA sclera is anicteric mouth throat mucous membranes are intact and moist neck is supple no lymphadenopathy, no JVD noted lung sounds are clear to auscultation heart regular rate rhythm, clear S1, S2 positive bowel sounds, abdomen is soft, nontender neuro patient is alert x3, no focal deficits <Jessica Wells NP - Last Filed: 03/07/21 17:09> DS: Data Data Completed and Pending Labs on day of discharge: Laboratory Results - last 24 hr 02/06/21 02/06/21 06:10 06:10 WBC 6.1 RBC 3.93 L Hgb 12.2 L Hct 36.8 L MCV 93.6 MCH 31.0 MCHC 33.2 RDW 13.2 Plt Count 180 MPV 9.5 Immature Gran % (Auto) 0.3 Neut % (Auto) 50.9 Lymph % (Auto) 36.1 [place] % (Auto) 11.4 H Eos % (Auto) 1.0 Baso % (Auto) 0.3 Lymph # (Auto) 2.2 [place] # (Auto) 0.7 Eos # (Auto) 0.1 Baso # (Auto) 0.0 Abs Immat Gran (auto) 0.02 Absolute Neuts (auto) 3.1 Absolute Nucleated RBC 0.000 Nucleated RBC % (auto) 0.0 Sodium 141 Potassium 4.1 Chloride 110 H Carbon Dioxide 25 Anion Gap 10 L BUN 19 H Creatinine 0.75 Estim Creat Clear Calc 151.8 Estimated GFR > 60 Random Glucose 93 Calcium 9.4 <Jessica Wells NP - Last Filed: 03/07/21 17:09> Discharge Plan Discharge Anticipated Discharge Date/Time: 02/06/21 13:20 <Jessica Wells NP - Last Filed: 03/07/21 17:09> Patient Disposition: Xfer Psychiatric Hosp <Jessica Wells NP - Last Filed: 03/07/21 17:09> Referrals: M-5 [Other] - 1 Week Physician,Unknown [Primary Care Provider] - 1 Week <Jessica Wells NP - Last Filed: 03/07/21 17:09> Discharge Medications: No Action trazodone 50 mg Tablet 50 mg PO BEDTIME PRN (Reason: Insomnia) 30 Days Qty: 30 RF: 0 risperidone 2 mg Tablet 2 mg PO BEDTIME 30 Days Qty: 30 RF: 0 risperidone 1 mg Tablet 1 mg PO DAILY 30 Days Qty: 30 RF: 0 divalproex 500 mg Tablet,Delayed Release (Dr/Ec) 500 mg PO BID 30 Days Qty: 60 RF: 0 nicotine (polacrilex) 2 mg Gum 2 mg buccal Q1H PRN (Reason: Nicotine Cravings) 30 Days Qty: 40 RF: 0 <Jessica Wells NP - Last Filed: 03/07/21 17:09> Discharge Orders: Discharge Order (Routine); Ordered 02/05/21 Ordered By: Jessica Wells <Jessica Wells NP - Last Filed: 03/07/21 17:09> Diet: advance to usual diet <Jessica Wells NP - Last Filed: 03/07/21 17:09> advance to usual diet <Kyle Shaver MD - Last Filed: 03/20/21 15:42> Activity on Discharge: As tolerated <Jessica Wells NP - Last Filed: 03/07/21 17:09> As tolerated <Kyle Shaver MD - Last Filed: 03/20/21 15:42> Stand Alone Forms: Patient Portal Discharge page <Jessica Wells NP - Last Filed: 03/07/21 17:09> Care Plan Goals: No further seizure like episodes <Jessica Wells NP - Last Filed: 03/07/21 17:09> Health Concerns: Unresponsiveness <Jessica Wells NP - Last Filed: 03/07/21 17:09> Plan of Treatment: He will be transferred back to for continued behavioral health treatment. When your discharged you can follow-up with your primary care provider for any health concerns. EEG pending <Jessica Wells NP - Last Filed: 03/07/21 17:09> Assessment: I saw and examined patient and discussed finding, assessment, plan and disposition with lamont and harjeet I agree with the above, except if otherwise stated <Jessica Wells NP - Last Filed: 03/07/21 17:09> Discharge Date/Time: 02/06/21 16:50 <Jessica Wells NP - Last Filed: 03/07/21 17:09>
[2021-02-06 15:17] VITALS: BP 108/64; PULSE 84; RESP 20; TEMP 36.6; O2SAT 97
== END 2021-02-06 16:50 ==
PROVIDERS: Admitting Provider Nurse Practitioner Acute Care; Visit Provider Nurse Practitioner Acute Care
DX: F25.0 Schizoaffective disorder, bipolar type (principal); F22 Delusional disorders; R40.4 Transient alteration of awareness; Z87.891 Personal history of nicotine dependence; Z91.013 Allergy to seafood; Z79.899 Other long term (current) drug therapy
CPT/HCPCS: 36415; 80048; 83605; 85025; 85027; 96374; 99219; 99285; J2405

== ENCOUNTER 2021-02-06 17:06 | Inpatient (IN) | payer MEDICAID, SELFPAY ==
[2021-02-06 18:00] VITALS: BP 126/82; PULSE 87; RESP 16; TEMP 36.6
[2021-02-06 20:49] VITALS: BMI 18.9
[2021-02-06] MEDS: risperiDONE 2 MG TABLET PO (20:50)
[2021-02-06] MEDS: Acetaminophen 325 MG TABLET 650 MG PO (20:50)
[2021-02-06] MEDS: Divalproex Sodium 500 MG TABLET.DR PO (20:50)
--- NOTE | 2021-02-06 23:20 | PC.ADMIT ---
Pt is a 25 year old male who was transferred from to [facility] due to possible seizure activity. Pt reports that he has VH where he sees people that look familiar and other people it makes me have nightmares. During the 1:1 assessment he seemed to be preoccupied, staring with a delayed response. Pleasant and cooperative. Hx of Schizophrenia and Bipolar. Placed on 15 minute checks. CV signed. Towards the end of the night pt reported that he has been having trouble sleeping and decreased appetite. I saw a knife on my arm , requested medications to help him sleep. Has not verbalized SI, even though in eval he has been to his providers. Visible on the unit.
[2021-02-06] MEDS: traZODone HCL 50 MG TABLET PO (23:31)
[2021-02-07] MEDS: hydrOXYzine HCL 50 MG TABLET PO (03:55)
[2021-02-07 06:00] VITALS: BP 122/66; PULSE 80; RESP 18; TEMP 36.7; O2SAT 100
[2021-02-07] MEDS: Divalproex Sodium 500 MG TABLET.DR PO ×2 (08:42→21:46)
[2021-02-07] MEDS: risperiDONE 1 MG TABLET PO (09:38)
[2021-02-07] MEDS: LORazepam 1 MG TABLET PO ×2 (09:38→15:29)
--- NOTE | 2021-02-07 10:08 | P.HPPS_ITS ---
HPI Chief Complaint: ?seizure Sources of Information: patient interviewed, chart reviewed and crisis/core team assessment reviewed HPI Subjective Notes: Howell Warning and Conditional Voluntary Narrative: Patient is a 25-year-old male with history of schizoaffective d isorder, bipolar type who presented with psychotic symptoms of delusional thinking that he was accidentally engaged in cannibalism. Patient was taking both Risperdal and Depakote, and Risperdal was increased to good effect. Patient seemed to be stabilizing well and delusional thinking resolved. However on day approaching discharge, patient had a seizure on the unit (at least currently being ruled out a seizure by Neurology who is following) and was admitted to the [facility]. Patient is medically cleared and EEG is pending. While on [facility], hospitalist informed that patient expressed suicidal ideation. He is transferred back to inpatient psychiatric unit for continued stabilization. On approach, patient seemed more confused and said he was feeling ?weird .? He denied any SI and was unclear why keno writer/runner thought he expressed it on medical floor. Patient however continued to say I am feeling very weird ? and while keno writer/runner was talking with him made some jerking motions of his hands. He said t hat he started to hear voices and feels like he is hallucinating; patient said I thought I just saw that person walked by. Patient then said he was confused: He then said he wanted to go home saying that he goes back and forth between feeling normal and feeling confused. Patient was then sitting on a chair in the hallway and screamed out and then broke down and sobs. He was able to calm down and take increased dose of Risperdal to which she had agreed upon earlier during interview. Psychiatric history -mom says little to no hx of AH but endorses hx of manic episodes, first about 7 years ago when for 4 days he was w/out sleep, seeing things that were'nt there, with high energy hyperverbal/pressured speech, saying bizarre things, risk behaviors-went to ruff and jumped off..which resulted in admission -numerous inpatient admissions -hx of depressive episodes and several suicide attempts -hx of paranoid delusional thinking outside of manic and depressive episodes. -mom says no hx of seizures -mom says pt not on Topimax (it was listed in hospitalists note) Past Psychiatric History: -mom says little to no hx of AH but endorses hx of manic episodes, first about 7 years ago when for 4 days he was w/out sleep, seeing things that were'nt there, with high energy hyperverbal/pressured speech, saying bizarre things, risk behaviors-went to roof and jumped off..which resulted in admission -numerous inpatient admissions -hx of depressive episodes and several suicide attempts -hx of paranoid delusional thinking outside of manic and depressive episodes. 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 [employer] Trauma History: denies Diagnostics Vital Signs (24Hr): Vital Signs - 24 hr 02/06/21 18:00 02/07/21 06:00 Temperature 97.9 F 98.1 F Pulse Rate 87 80 Respiratory Rate 16 18 Blood Pressure 126/82 122/66 Pulse Oximetry 100 Body Mass Index 18.9 Meds/Allergies Meds Home Medications Acetaminophen (Acetaminophen 325 Mg Tablet) 650 mg PO Q6H PRN PRN Reason: Pain, Mild (Pain Scale 1-3) Last Admin: 02/06/21 20:50 Dose: 650 mg Documented by: Al Hydroxide/Mg Hydroxide (Magnesium Hydrox/Alum Hydrox 30 Ml Oral.Susp) 30 ml PO Q6H PRN PRN Reason: Heartburn/Nausea Divalproex Sodium (Divalproex Sodium 500 Mg Tablet.) 500 mg PO BID [facility] Last Admin: 02/07/21 08:42 Dose: 500 mg Documented by: Hydroxyzine HCl (Hydroxyzine Hcl 50 Mg Tablet) 50 mg PO Q8H PRN PRN Reason: Anxiety Last Admin: 02/07/21 03:55 Dose: 50 mg Documented by: Magnesium Hydroxide (Milk Of Magnesia 30 Ml Oral.Susp) 30 ml PO DAILY PRN PRN Reason: Constipation Nicotine Polacrilex (Nicotine Polacrilex 2 Mg Lozenge) 2 mg BUCCAL Q1H PRN PRN Reason: withdrawl Risperidone (Risperidone 2 Mg Tablet) 2 mg PO BEDTIME [facility] Last Admin: 02/06/21 20:50 Dose: 2 mg Documented by: Trazodone HCl (Trazodone Hcl 50 Mg Tablet) 50 mg PO BEDTIME PRN PRN Reason: Insomnia Last Admin: 02/06/21 23:31 Dose: 50 mg Documented by: Allergies Allergies Allergy/AdvReac Type Severity Reaction Status Date / Time shrimp Allergy Unknown Verified 01/31/21 12:36 Mental Status Exam Mental Status Exam Narrative: Pt is alert and oriented; behavior disorganized, standing in hallway, staring; patient dressed in hospital gown with adequate hygiene; mood is described as weird and affect congruent; eye contact overly prolonged; Speech is a little slowed, but normal volume; not pressured; some psychomotor agitation as pt jerked his arms; however also some retardation present as patient is walking slow; thought process is disorganized but can be goal directed. Thought content is feeling weird. Some delusional content, paranoid ideations present; denies any SI/HI. Endorses AH and maybe some VH. Patients insight and judgment appear impaired. Assessment & Plan Assessment & Plan (1) Schizoaffective disorder, bipolar type: Status: Acute Code(s): F25.0 - Schizoaffective disorder, bipolar type Assessment and Plan: Impression: Patient is a 25-year-old male with history of schizoaffective disorder, bipolar type who presented with psychotic symptoms of delusional thinking that he was accidentally engaged in cannibalism. Patient was taking both Risperdal and Depakote, and Risperdal was increased to good effect. Patient seemed to be stabilizing well and delusional thinking resolved. However on day approaching discharge, patient had a seizure on the unit (at least currently being ruled out a seizure by Neurology who is following) and was admitted to the [facility]. Patient is medically cleared and EEG is pending. While on [facility], hospitalist informed that patient expressed suicidal ideation. He is transferred back to inpatient psychiatric unit for continued stabilization. On unit patient is more disorganized with more pronounced psychotic symptoms than on previous admission. He has been off Risperdal and Depakote for 1 day. It is unclear what is driving this intensified psychotic presentation. Patient agrees to increased Risperdal dose for now. Will continue to assess PLAN: Patient on CV Will increase Risperdal dose to 1 mg in the morning and 2 mg at bedtime; will titrate slowly since patient has been relatively stable on the less dose in the past Reason for continued inpatient stay Substantial Risk for: harm to self, rapid decompensation and med/psych decompensation
[2021-02-07] MEDS: risperiDONE 0.5 MG TABLET PO (15:29)
[2021-02-07] MEDS: Acetaminophen 325 MG TABLET 650 MG PO (16:50)
[2021-02-07 18:00] VITALS: BP 111/62; PULSE 96; RESP 16; TEMP 36.9; O2SAT 98
[2021-02-07] MEDS: risperiDONE 2 MG TABLET PO (21:46)
[2021-02-08 06:00] VITALS: BP 100/55; PULSE 95; RESP 18; TEMP 36.6; O2SAT 97
[2021-02-08 07:00] VITALS: BMI 20.9
[2021-02-08] MEDS: Divalproex Sodium 500 MG TABLET.DR PO ×2 (08:11→20:04)
[2021-02-08] MEDS: risperiDONE 1 MG TABLET PO (08:12)
[2021-02-08] MEDS: Nicotine Polacrilex 2 MG GUM BUCCAL ×6 (08:57→18:06)
--- NOTE | 2021-02-08 10:00 | HO.PSYCHPN ---
Subjective Subjective Date of Service: 02/08/21 Reason For Visit: ?seizure Interim History: Pt reports that he's feeling better today. Supply Chain Tech discussed patients experience yesterday and he says yay, i was hallucinating...but i'm better now... he's not sure why he had such intense AVH but thinks it was maybe since he went off his medications for a day or so while on medical floor. Pt says it's up to you about when he can go home but says he thinks he's ready. He agrees and wants to have his mother weigh in. Pt denies any delusional thinking and has no thoughts about cannibalism; he denies any AVH and denies any SI or HI. denies any medication side-effect Medication Compliance: Yes Side effects from medications: No Mental Status Exam Mental Status Exam Narrative: Pt is alert and oriented; behavior organized, calm and cooperative; patient dressed in hospital gown and pants with adequate hygiene; mood is described as better and affect congruent and noticeably brighter; eye contact appropriate; Speech is a normal rate, volume and prosody, not pressured; no psychomotor agitation/retardation; thought process is organized, linear and goal directed. Thought content is feeling on feeling better and possible discharge. He denies any delusional thinking and not expressed; denies AVH; Denies SI and HI. Patients insight and judgment appear intact. Diagnostics Vital Signs (24Hr): Vital Signs - 24 hr 02/07/21 18:00 02/08/21 06:00 Temperature 98.4 F 97.9 F Pulse Rate 96 95 Respiratory Rate 16 18 Blood Pressure 111/62 100/55 L Pulse Oximetry 98 97 Body Mass Index 18.9 Medications Medications Current Medications Generic Name Dose Route Start Last Admin Trade Name Freq PRN Reason Stop Dose Admin Acetaminophen 650 mg 02/06/21 17:17 02/07/21 16:50 Acetaminophen 325 Mg Tablet PO 650 mg Q6H PRN Administration Pain, Mild (Pain Scale 1-3) Al Hydroxide/Mg Hydroxide 30 ml 02/06/21 17:18 Magnesium Hydrox/Alum Hydrox 30 Ml Oral.Susp PO Q6H PRN Heartburn/Nausea Divalproex Sodium 500 mg 02/06/21 21:00 02/08/21 08:11 Divalproex Sodium 500 Mg Tablet. PO 500 mg BID JAKY Administration Hydroxyzine HCl 50 mg 02/06/21 21:00 02/07/21 03:55 Hydroxyzine Hcl 50 Mg Tablet PO 50 mg Q8H PRN Administration Anxiety Lorazepam 1 mg 02/07/21 14:16 02/07/21 15:29 Lorazepam 1 Mg Tablet PO 1 mg BID PRN Administration Anxiety Magnesium Hydroxide 30 ml 02/06/21 17:18 Milk Of Magnesia 30 Ml Oral.Susp PO DAILY PRN Constipation Nicotine Polacrilex 2 mg 02/08/21 08:50 02/08/21 08:57 Nicotine Polacrilex 2 Mg Gum BUCCAL 2 mg Q1H PRN Administration Nicotine Cravings Risperidone 2 mg 02/06/21 21:00 02/07/21 21:46 Risperidone 2 Mg Tablet PO 2 mg BEDTIME JAKY Administration Risperidone 1 mg 02/08/21 09:00 02/08/21 08:12 Risperidone 1 Mg Tablet PO 1 mg DAILY JAKY Administration Risperidone 0.5 mg 02/07/21 14:15 02/07/21 15:29 Risperidone 0.5 Mg Tablet PO 0.5 mg BID PRN Administration psychosis/agitation Trazodone HCl 50 mg 02/06/21 21:00 02/06/21 23:31 Trazodone Hcl 50 Mg Tablet PO 50 mg BEDTIME PRN Administration Insomnia Allergies Allergies Allergy/AdvReac Type Severity Reaction Status Date / Time shrimp Allergy Unknown Verified 01/31/21 12:36 Assessment & Plan Assessment & Plan (1) Schizoaffective disorder, bipolar type: Status: Acute Code(s): F25.0 - Schizoaffective disorder, bipolar type Assessment and Plan: Impression: Patient is a 25-year-old male with history of schizoaffective disorder, bipolar type who presented with psychotic symptoms of delusional thinking that he was accidentally engaged in cannibalism. Patient was taking both Risperdal and Depakote, and Risperdal was increased to good effect. Patient seemed to be stabilizing well and delusional thinking resolved. However on day approaching discharge, patient had a seizure on the unit (at least currently being ruled out a seizure by Neurology who is following) and was admitted to the [facility]. Patient is medically cleared and EEG is pending. While on [facility], hospitalist informed that patient expressed suicidal ideation. He is transferred back to inpatient psychiatric unit for continued stabilization. 02/07/21 -On unit patient is more disorganized with more pronounced psychotic symptoms than on previous admission. He has been off Risperdal and Depakote for 1 day. It is unclear what is driving this intensified psychotic presentation. Patient agrees to increased Risperdal dose for now. Will continue to assess 02/08/21 -pt's risperdal was increased to 1mg in AM and 2mg at bedtime and he is much improved, denies AVH, delusions, SI and feels better. -will get pt's mother to weigh in on pt's baseline PLAN: Patient on CV EEG as outpt only rec from neuro. Continue Risperdal 1 mg AM and 2 mg at bedtime; will titrate slowly since patient has been relatively stable on the less dose in the past Greater than 50% of the session was spent on counseling and/or coordination of care Reason for contiued inpatient stay Substantial Risk for: med/psych decompensation
[2021-02-08 16:05] VITALS: BP 127/75; PULSE 92; TEMP 36.4
--- NOTE | 2021-02-08 17:17 | EEG_ITS ---
This is a 16-channel EEG with an EKG lead. The patient is reported awake during the tracing. Background EEG rhythm is at times 10 to 12 hertz, 5 to 50 microvolt posteriorly, lower amplitude fast anteriorly and at times lower amplitude fast with no obvious asymmetry or paroxysmal tendency. Photic stimulation does not produce any significant abnormality. Hyperventilation is not performed. Cardiac lead does not reveal any significant abnormality. No sharp wave spikes or paroxysmal tendency noted. Some lead and muscle artifacts are noted. IMPRESSION: Unremarkable EEG. MD ELZA Jett/RODO / [id number]
[2021-02-08] MEDS: risperiDONE 2 MG TABLET PO (20:04)
[2021-02-09 08:36] LABS: Ammonia 44 umol/L (13-55)
[2021-02-09] MEDS: risperiDONE 1 MG TABLET PO (08:45)
[2021-02-09] MEDS: Divalproex Sodium 500 MG TABLET.DR PO (08:45)
--- NOTE | 2021-02-09 08:46 | PM.PSYDC ---
DS: Providers Provider Date of Service: 02/09/21 Date of admission: 02/06/21 17:06 Date of discharge: 02/09/21 Primary care physician: Unknown Physician Attending physician on admission: Fabrizio Watson Consults: 02/06/21 17:17 Consult to Neurology Routine Consulting Provider: [facility] Reason for consultation: ? sezizure vs pseudo Has provider been notified: No Attending physician on discharge: Fabrizio Watson DS: Diagnosis Discharge Diagnosis (1) Schizoaffective disorder, bipolar type: Status: Chronic Problem details: psychotic symptoms outside of depressive and manic episodes DS: Medications Discharge Medications Home Medications: Previous Rx's Medication Instructions Recorded divalproex 500 mg PO BID 30 Days #60 tab 02/09/21 nicotine (polacrilex) 2 mg BUCCAL Q1H PRN 30 Days #40 ea 02/09/21 risperidone 1 mg PO DAILY 30 Days #30 tab 02/09/21 risperidone 2 mg PO BEDTIME 30 Days #30 tab 02/09/21 trazodone 50 mg PO BEDTIME PRN 30 Days #30 02/09/21 tab Discharge Plan Discharge Patient Disposition: Home, Self-Care Discharge Diagnosis: Schizoaffective disorder, bipolar type Referrals: Therapist: Radha Canchola ([facility]) [Other] - 02/13/21 8:00 am Psych Prescriber: Prachi Yancey ([facility]) [Other] - 03/06/21 11:20 am Psych Prescriber: Prachi Yancey ([facility]) [Other] - 04/03/21 12:10 pm Ziggy Velásquez RN [Other] - 1 Week (Fax- [phone] The [facility] service will be starting on ) Henry Dennis MD [Physician] - 04/12/21 8:50 am Discharge Medications: New trazodone 50 mg Tablet 50 mg PO BEDTIME PRN (Reason: Insomnia) 30 Days Qty: 30 RF: 0 risperidone 2 mg Tablet 2 mg PO BEDTIME 30 Days Qty: 30 RF: 0 risperidone 1 mg Tablet 1 mg PO DAILY 30 Days Qty: 30 RF: 0 nicotine (polacrilex) 2 mg Gum 2 mg buccal Q1H PRN (Reason: Nicotine Cravings) 30 Days Qty: 40 RF: 0 Continued divalproex 500 mg Tablet,Delayed Release (Dr/Ec) 500 mg PO BID 30 Days Qty: 60 RF: 0 Discontinued risperidone 2 mg Tablet 2 mg PO DAILY RF: 0 Discharge Orders: Discharge Order (Routine); Ordered 02/09/21 Ordered By: Fabrizio Watson Diet: regular diet Activity on Discharge: As tolerated Stand Alone Forms: Patient Portal Discharge page, Community Support Care Plan Goals: Maintain mood and safe behaviors Take medications as prescribed Practice coping skills Continue with outpatient providers and reach out to them as needed Health Concerns: Mood instability and behaviors Plan of Treatment: Follow up with your psychiatric provider regarding above concern Take medications as prescribed Assessment: Risk assessment at time of discharge: Patient has been observed closely by nursing and unit staff throughout admission; patient has not engaged in any behaviors that suggest dangerousness to self or others. Patient had moment of psychotic anxiety when he screamed out loud, but otherwise has demonstrated appropriate behaviors and impulse control. Patient was interviewed prior to discharge and found to be fully oriented and without any SI or HI. Patient has insight and demonstrates good judgment in terms of wanting to pursue treatment. Patient is not in imminent risk of harm to self or others and has a safety plan that includes presenting to the closest ER or calling 911 if feeling unsafe. Mental Status Exam Mental Status Exam Narrative: on day of discharge, Pt is alert and oriented; behavior is cooperative, friendly and calm; patient is not in distress; dressed in casual attire with good hygiene; mood is described as good. i feel good and affect congruent; eye contact appropriate; Speech is normal rate, volume and prosody and not pressured; no psychomotor agitation/retardation present; thought process is organized, goal directed and concrete. Thought content is on discharge; but otherwise pertinent to relevant topics and without any delusional content, paranoid ideations or grandiosity; denies any SI/HI. There is no evidence of perceptual disturbance. Patients insight and judgment appear intact. Data Data Completed and Pending Completed studies during hospitalization [Text1]: 02/09/21 02/09/21 07:52 07:52 Sodium Pending Potassium Pending Chloride Pending Carbon Dioxide Pending Anion Gap Pending Total Bilirubin Pending Direct Bilirubin Pending AST Pending ALT Pending Alkaline Phosphatase Pending Ammonia 44 Total Protein Pending Albumin Pending Valproic Acid Pending 02/08/2021 16:09:44 This is a 16-channel EEG with an EKG lead. The patient is reported awake during the tracing. Background EEG rhythm is at times 10 to 12 hertz, 5 to 50 microvolt posteriorly, lower amplitude fast anteriorly and at times lower amplitude fast with no obvious asymmetry or paroxysmal tendency. Photic stimulation does not produce any significant abnormality. Hyperventilation is not performed. Cardiac lead does not reveal any significant abnormality. No sharp wave spikes or paroxysmal tendency noted. Some lead and muscle artifacts are noted. IMPRESSION: Unremarkable EEG. Tracy Smith MD DS: Summary Hospital Course Hospital Course: Patient is a 25-year-old male with history of schizoaffective disorder, bipolar type who presented with psychotic symptoms of delusional thinking that he was accidentally engaged in cannibalism. Patient was taking both Risperdal and Depakote, and Risperdal was increased to good effect. Patient seemed to be stabilizing well and delusional thinking resolved. However on the day approaching discharge, patient had what appeared to be a seizure on the unit (though EEG was unremarkable) and was [place] [facility] [place]. Patient was medically cleared, but while on [facility], hospitalist informed that patient expressed suicidal ideation. He was transferred back to inpatient psychiatric unit for continued stabilization. On day of re-admission, patient was more confused then he'd been and said he was feeling ?weird .? He denied any SI however continued to say I am feeling very weird ? and while casualty underwriter was talking with him made some jerking motions of his hands; he then said he was hearing voices and felt like he is hallucinating. Pt was disorganized, standing in hallway, staring; he screamed out and then broke down and sobs. Patient's Risperdal was increased and he was soon able to relax after taking a p.r.n. By the next day, patient reported that he was feeling back to his normal self, that all AVH and delusional thinking had fully resolved; he continued to deny SI and felt he was probably ready for discharge as long as his mother agreed. Patient remained on unit for another day to demonstrate stability; he continued to remain in good mood with bright affect, without any AVH, paranoid thinking or suicidal ideation. He was looking for to discharge and returning to his mother's house. Patient's mother agreed he was back to his baseline and ready to return home. He was not in imminent risk for harm to self or others and his request for discharge honored. Patient's lab work was within normal limits Hybrid Corn Breeder discussed risks/side effects of both Risperdal and Depakote; patient communicated understanding of benefits, risks and side-effects of medications and wants to continue with regimen. Patient agrees that current doses seem appropriate and denies medication side-effects. Patient agrees to reach out to outpatient provider with any medications concerns. Status at Discharge Overall status at discharge: patient is back to baseline Time Spent with Patient Time attestation: Total time spent providing and/or coordinating discharge services: Time spent: Greater than 30 minutes
[2021-02-09 09:17] LABS: Valproate 48.5 mcg/mL (50.0-100.0)
[2021-02-09 09:18] LABS: Alanine Aminotransferase 10 U/L (0-40); Albumin Level 4.4 g/dL (3.5-5.0); Alkaline Phosphatase 68 U/L (39-117); Anion Gap 12 (12-20); Aspartate Amino Transferase 12 U/L (5-37); Bilirubin Direct 0.3 mg/dL (0.0-0.5); Bilirubin Total 0.8 mg/dL (0.0-1.0); Carbon Dioxide 27 mmol/L (22-29); Chloride 106 mmol/L (96-108); Sodium 141 mmol/L (135-145); Total Protein 7.5 g/dL (6.5-8.0)
== END 2021-02-09 14:23 | disposition home or self-care (01) | DRG 750 ==
PROVIDERS: Admitting Provider Psychiatry & Neurology Psychiatry; Visit Provider Psychiatry & Neurology Psychiatry
DX: F25.0 Schizoaffective disorder, bipolar type (principal); Z79.899 Other long term (current) drug therapy
CPT/HCPCS: 36415; 80051; 80076; 80164; 82140; 95816

== ENCOUNTER 2024-05-17 17:49 | Emergency (ER) | payer OTHER, SELFPAY ==
--- NOTE | ~2024-05-17 | CT_ITS ---
EXAMINATION: CT CHEST, ABDOMEN AND PELVIS withoutCONTRAST CLINICAL INFORMATION: swallowed tooth brush last week COMPARISON: None. TECHNIQUE: Multidetector volumetric CT imaging of the chest, abdomen and pelvis was obtained . Coronal, Sagittal reformatted images preformed at the CT scanner. [This CT examination was performed using dose optimization techniques as appropriate, variously including the following: *Automated exposure control *Adjustment of mA and/or kV according to patient size (this includes techniques or standardized protocols for targeted exams where dose is matched to indication/reason for exam; i.e. extremities or head) *Use of iterative reconstruction technique] DLP: 981 mGy-cm. FINDINGS: No radiopaque foreign body in the chest, abdomen or pelvis. CT CHEST: Lungs: The lungs are clear with no evidence of inflammation or nodules. Mediastinum: The mediastinum is normal. Pleura: There is no pleural effusion. No pleural mass or thickening. Axilla: No lymphadenopathy. CT ABDOMEN AND PELVIS: Liver, Gallbladder and Biliary Tree: The liver is normal in size, shape, and attenuation. No focal hepatic lesion or biliary ductal dilatation is present. The gallbladder is unremarkable with no evidence of radiopaque gallstones, gallbladder wall thickening, or obvious pericholecystic inflammatory changes. Pancreas: No acute change of the pancreas. No mass. No pancreatic duct dilatation. Spleen: Spleen normal in size and contour. No focal lesion. Adrenal Glands: Adrenal glands are normal in size. No focal mass. Kidneys and Ureters: The kidneys are normal in size, shape, and attenuation. No hydronephrosis, hydroureter, or calculi seen. No perinephric stranding. Bladder: Unremarkable. Gastrointestinal Tract: Status post right hemicolectomy. There is no acute abnormality of the bowel. No bowel obstruction. Bowel wall thickening or edema. There are few diverticula sigmoid colon without evidence of diverticulitis. Small volume scattered stool in the colon. Mesentery: No focal inflammation. No free fluid. No free air. Abdominal Wall: No significant hernia is appreciated. Lymph Nodes: Normal. Vascular: Unremarkable. Pelvic Viscera: Unremarkable. Osseous Structures: Chronic compression deformity L1 vertebrae without 80% loss of height of the vertebrae. Kyphosis of the spine at this level. Chronic compression of the superior endplate of L3 with about 50% loss of height of the vertebrae. CT/CT abdomen pelvis wo IV con IMPRESSION: 1. No radiopaque foreign body in the chest, abdomen or pelvis. 2. Status post right hemicolectomy. No acute abnormality of the bowel. 3. Chronic compression deformity L1 and L3 vertebrae. Electronically signed by: Fabian Marcelino MD 05/17/2024 09:22 PM EDT RP
[2024-05-17 18:06] VITALS: BP 110/78; BP 119/79; PULSE 100; PULSE 90; RESP 18; TEMP 36.6; O2SAT 99; BMI 27.7
--- NOTE | 2024-05-17 18:32 | PC.NURSE ---
pt changed over with security. reporting SI. attempt last week 05/10 by swallowing a toothbrush. Reported this to staff today. [facility] staff member at bedside. Reminded to let [facility] staff know if they are leaving the bedside.
--- NOTE | 2024-05-17 18:51 | PC.NURSE ---
belongiings in closet c-3. changed with security
--- NOTE | 2024-05-17 18:58 | ED.GENADULT ---
HPI - General Adult General Chief complaint: General Medical Stated complaint: A&0x4, swallowed a toothbrush, SI Time Seen by Provider: 05/17/24 18:06 Source: patient Mode of arrival: ambulatory Limitations: no limitations History of Present Illness ED Provider: Rudy Barnard HPI narrative: 29 yold male with pmh of presents to the ED for Swallowing a tooth brush. Patient has swallowed tooth brush on May 10 and informed the staff today. Patient states he wanted to kill himself and was upset he did not succeed. Staff member said patient showed him on recording of swallowed the tooth brush. Patient denies vomiting blood, coughing up blood, or blood in stool. Patient denies seeing tooth brush in bowel movement. Aide from [facility] with with the patient's said himself and staff was showed video of patient's swallowing the toothbrush on patient's cell phone. Patient denies any abdominal pain, chest pain, shortness of breath, fever, or chills. Related Data Previous Rx's ?Medication ?Instructions ?Recorded divalproex 500 mg tablet,delayed 500 mg PO BID 30 days #60 tabs 02/09/21 release nicotine (polacrilex) 2 mg gum 2 mg buccal Q1H PRN Nicotine 02/09/21 Cravings 30 days #40 ea risperidone 1 mg tablet 1 mg PO DAILY 30 days #30 tabs 02/09/21 risperidone 2 mg tablet 2 mg PO BEDTIME 30 days #30 tabs 02/09/21 trazodone 50 mg tablet 50 mg PO BEDTIME PRN Insomnia 30 02/09/21 days #30 tabs Allergies Allergy/AdvReac Type Severity Reaction Status Date / Time shrimp Allergy Unknown Verified 05/17/24 18:10 Review of Systems Review of Systems: swallowed tooth luis Yes all other systems are reviewed and are negative PMFSH Past Medical History Medical History Schizoaffective disorder, bipolar type Social History Social History Household Members: Family Household Members Other:: lives with parent Housing: Apartment Do you presently have visiting nurse or other home services: No Unable to assess alcohol history related to: Unable to respond Patient Tobacco Use Status: Former Tobacco user Tobacco use type: Cigarette Years Smoked: 1 YEAR Smoked in Last 30 Days: No e-Cigarette/Vaping Use: Never Used Second Hand Smoke Exposure: No Use of substances other than those prescribed or required for medical reasons: No Substance Use Type: Marijuana Advance Directives: No Advance Directives Information Provided: No service: No Current occupational status: unemployed Sexual orientation: Did not discuss Physical Exam ED Vital Signs: Vital Signs - 24 hr 05/17/24 18:06 05/17/24 23:58 Temperature 97.8 F 98.1 F Pulse Rate 90 89 Respiratory Rate 18 17 Blood Pressure 119/79 121/72 Pulse Oximetry 99 98 Oxygen Delivery Method Room Air Room Air BMI result Body Mass Index 27.7 Const General: cooperative, healthy appearing, comfortable, no acute distress, well developed, alert, awake and Physically active Orientation/consciousness: patient oriented x3 HENMT Head: Yes normal to inspection, Yes No palpable skull fracture present, Yes normocephalic, Yes atraumatic and No abrasion Eyes General: appearance normal, both eyes and all related structures Neck Neck: Yes normal visual inspection, Yes full ROM, Yes no lymphadenopathy, Yes no meningeal signs, Yes trachea midline, Yes supple, No anterior neck swelling and No tender Chest Chest palpation & inspection: normal inspection of the chest and normal palpation of entire chest wall Resp Effort & Inspection: normal respiratory effort and able to speak in complete sentences Auscultation: clear to auscultation bilaterally Cardio Jugular venous distension: no JVD Heart sounds: S1 normal heart sound present and S2 normal heart sound present GI Inspection: Yes normal to inspection Palpation (GI): Soft to palpation, not firm, nontender, no guarding and not rigid General: Yes no CVA tenderness Back/Spine/Pelvis Back: no CVA tenderness and No back tenderness Skin General skin exam: no rashes or lesions noted, elasticity normal and turgor normal Neuro General: patient oriented x3, gait normal, tone normal, moves all extremities, Normal light touch and pain sensation, no meningeal signs, no focal motor deficits, CN's II-XI intact bilaterally and normal sensation to monofilament Extrem General: Yes normal to inspection, Yes full ROM and Yes capillary refill normal Psych Appearance: grossly normal, well kempt and not disheveled Medical Decision Making Medical Decision Making MDM Narrative: 29-year-old male presents to the ED for swallowing a tooth brush as an SI Attempt. Patient denies having any bowel movements that had tooth brush. Patient still believes he has tooth brush inside of him. Abdominal exam is benign. Chest exam is benign. Oral cavity exam is benign. Patient will be sent for dry imaging. 11:31pm: Abdominal CT/Chest CT scan normal and negative for any foreign body or perforation. Patient is comfortable. Patient was asked multiple times during ED visit if he ever had any abdominal pain and patient denies. Patient denies ever having any sore throat. No need for any labs or further imaging. Abdominal exam evaluated and negative for any tenderness. Abdominal exam benign. Called facility [facility] and they are aware of patient's suicide ideation and they are a psych facility and will manage patient and patient will be on one-to-one. Not suspecting myocardial infarction, pericarditis, foreign body impaction, esophageal tear, a colon perforation, foreign body impaction, or any other life threatening etiolgy Differential Diagnosis Differential Diagnoses: The differential diagnosis associated with the presentation includes (Foreign body) Admission/Observation Consideration of admission/observation: Escalation of care including admission/observation considered Independent Interpretation I performed an independent interpretation of an: CT Scan Radiology Impression Discussion of test interpretation with radiology: I have reviewed the radiologist's reading. Independent Historian Clinical information obtained from an independent historian. History obtained from or confirmed by: Other ([facility]) External Record Review External record reviewed: Other Discharge Plan Discharge Clinical Impression: Foreign body (FB) in soft tissue Patient Disposition: Home, Self-Care Instructions: Depression (ED), Foreign Body Ingestion (ED) Additional Instructions: Abdominal CT scan of the chest and abdomen came back negative for any foreign body or signs of perforation. Return to the ED immediately for any abdominal pain, chest pain, shortness of breath, rectal bleeding, vomiting blood, weakness, dizziness, or any other concerning symptoms. Recommend one to one intervention at facility Prescriptions: No Action trazodone 50 mg Tablet 50 mg PO BEDTIME PRN (Reason: Insomnia) 30 Days Qty: 30 0RF risperidone 2 mg Tablet 2 mg PO BEDTIME 30 Days Qty: 30 0RF risperidone 1 mg Tablet 1 mg PO DAILY 30 Days Qty: 30 0RF divalproex 500 mg Tablet,Delayed Release (Dr/Ec) 500 mg PO BID 30 Days Qty: 60 0RF nicotine (polacrilex) 2 mg Gum 2 mg buccal Q1H PRN (Reason: Nicotine Cravings) 30 Days Qty: 40 0RF Interventions: ED Discharge Assessment Last Done: 05/17/24 23:58 Discharge Date/Time: 05/18/24 01:03 Print Language: Armenian
--- NOTE | 2024-05-17 18:59 | PC.NURSE ---
This RN assumed pt care @ 1900. Pt ca&ox4, no signs of distress. Pt with CT Plan of care ongoing.
--- NOTE | 2024-05-17 19:06 | PC.NURSE ---
Pt reporting 7/10 LUQ pain Sitter at bedside Plan of care ongoing.
[2024-05-17 23:58] VITALS: BP 121/72; PULSE 89; RESP 17; TEMP 36.7; O2SAT 98
--- NOTE | 2024-05-18 00:14 | PC.NURSE ---
Called [facility] and spoke with Jesus the RN on duty and gave report of what was done here and the results and that the patient would be coming back to them shortly. Had an estimated wait time of 40 minutes at that time.
== END 2024-05-18 01:03 | disposition home or self-care (01) ==
PROVIDERS: Emergency Provider Internal Medicine
DX: T14.91XA Suicide attempt, initial encounter (principal); X83.8XXA Intentional self-harm by other specified means, initial encounter; Y93.9 Activity, unspecified; Y92.9 Unspecified place or not applicable; Y99.9 Unspecified external cause status
CPT/HCPCS: 71250; 74176; 99284